=== PATIENT | male | born 1955 | race Caucasian/White ===

== ENCOUNTER 2017-01-09 13:56 | Inpatient (IN) | payer OTHER ==
--- NOTE | 2017-01-09 14:58 | PDOC ---
History of Present Illness - General Chief Complaint: Pain Stated Complaint: PAIN Time Seen by Provider: 01/09/17 14:47 - History of Present Illness Initial Comments: 01/09/17 15:13 The patient is a 61 year old male with a history of HTN and a cholecystectomy who presents for evaluation of epigastric and RUQ abdominal pain. The patient reports onset of poorly described epigastric and RUQ abdominal pain at 7am today that has remained persistent prompting his presentation to the ED today. He states that he has had the pain for years, but it has never been persistent like this in the past. He reports nausea, but denies any vomiting. He denies fevers, chills, SOB, chest pain, or changes with urination or bowel movements. He denies ETOH use and endorses occasional cigarette use. Past History - Past Medical History Allergies/Adverse Reactions: Allergies Allergy/AdvReac Type Severity Reaction Status Date / Time No Known Allergies Allergy Verified 01/09/17 14:05 Home Medications: Ambulatory Orders Amlodipine Besylate [Norvasc -] 10 mg PO DAILY 01/09/17 Aspirin [ASA -] 325 mg PO DAILY 01/09/17 Hydrochlorothiazide [Hctz -] 25 mg PO DAILY 01/09/17 Losartan Potassium [Cozaar -] 25 mg PO DAILY 01/09/17 COPD: No HTN: Yes Hypercholesterolemia: Yes - Surgical History Cholecystectomy: Yes - Suicide/Smoking/Psychosocial Hx Smoking History: Never smoked Information on smoking cessation initiated: No Hx Alcohol Use: No Drug/Substance Use Hx: No Review of Systems - Review of Systems Comments:: 01/09/17 15:18 Constitutional: No fevers, chills, fatigue, malaise HEENT: No Rhinorrhea, nasal congestion, Cardiovascular: No chest pain, syncope, palpitations, lightheadedness Respiratory: No Cough, SOB, Hemoptysis, Gastrointestinal: Abdominal pain, nausea, No Vomiting, Constipation, Diarrhea, Melena Genitourinary: No Dysuria, Frequency, Urgency, Hesitancy, Hematuria, Flank pain Musculoskeletal: No Myalgia, arthralgia Skin: No rashes, bruising, pallor Neurologic: No Headache, Dizziness, Numbness, Weakness, or Tingling Psychiatric: No Hallucinations. No SI or HI *Physical Exam - Vital Signs Last Vital Signs Temp Pulse Resp BP Pulse Ox 98.3 F 100 H 18 165/91 100 11/13/17 14:06 01/09/17 14:06 01/09/17 14:06 01/09/17 14:06 01/09/17 14:06 - Physical Exam Comments: 01/09/17 15:24 General Appearance: Nourished. No Apparent Distress HEENT: EOMI, JUN. No Pharyngeal Erythema, Tonsillar Exudate, Tonsillar Erythema Neck: No Cervical Lymphadenopathy Respiratory/Chest: Lungs Clear, Normal Breath Sounds. No Crackles, Rales, Rhonchi, Wheezing Cardiovascular: Regular Rhythm, Regular Rate. No Murmur, Gallops, Rubs Gastrointestinal/Abdominal: Normal Bowel Sounds, Soft. Epigastric tenderness to palpation. RUQ tenderness to palpation. No Guarding, Rebound, Musculoskeletal: No CVA Tenderness Extremity: Normal Capillary Refill Integumentary: Normal Color, Dry, Warm Neurologic: Fully Oriented, Alert, Normal Mood/Affect, Normal Response, ED Treatment Course - LABORATORY CBC & Chemistry Diagram: 01/09/17 15:05 01/09/17 15:05 Medical Decision Making - Medical Decision Making 01/09/17 15:26 The patient is a 61 year old male with a history of HTN and a cholecystectomy who presents for evaluation of epigastric and RUQ abdominal pain. Differential includes but is not limited to: Choledocholithiasis, Pancreatitis, gastritis, acs, infectious, metabolic derangement. Given the patient's physical exam of ruq tenderness to palpation, it is possible his symptoms are due to a choledocholithiasis. We will obtain a cbc, cmp, troponin, lipase, ua to evaluate for other etiologies including acs and pancreatitis. We will obtain an US to evaluate for any common bile duct dilation. We will treat in the meantime with zofran, pepcid, and iv fluids. We will continue to monitor and reassess. 01/09/17 18:30 cbc demonstrates an wbc elevation to 20. cmp demonstrates elevations in his t.bili and liver enzymes. RUQ US demonstrated dilation in the common bile duct to 2.4 cm concerning for choledocholithiasis vs. cholangitis. We will treat with zosyn and morphine for pain control. He will require admission for further management of his symptoms. We discussed the case with Dr. Mcbride who accepted the patient for admission. We discussed the plan with the patient who voiced understanding and is agreeable with the plan. 01/09/17 19:08 We discussed the case with Dr. Armstrong who has been made aware of the case and requests that we put in for an MRCP. *DC/Admit/Observation/Transfer Diagnosis at time of Disposition: Acute cholangitis, Choledocholithiasis - Discharge Dispostion Condition at time of disposition: Stable Admit: Yes - Referrals - Patient Instructions - Post Discharge Activity
[2017-01-09] MEDS ORDERED: ONDANSETRON 4 MG/2 ML VIAL IVPUSH ONE (15:00)
[2017-01-09] MEDS ORDERED: FAMOTIDINE 20 MG/50 ML IVPB 20 MG/50 ML MG IVPB ONE ×2 (15:00→15:20)
[2017-01-09] MEDS ORDERED: SODIUM CHLORIDE 1,000 ML IV STA (15:01)
[2017-01-09] MEDS ORDERED: ONDANSETRON 4 MG/2 ML VIAL ONE (15:11)
[2017-01-09 15:19] LABS: MCH 28.8 pg (25.7-33.7); MCHC 33.9 g/dl (32.0-35.9); MEAN CELL VOLUME 84.9 fl (80-96); MEAN PLT VOLUME 8.3 fl (7.5-11.1); PLATELET COUNT 277 K/MM3 (134-434); RDW 13.8 % (11.9-15.9); WHITE BLOOD COUNT 20.8 K/mm3 (4.0-10.0)
[2017-01-09 15:34] LABS: ALBUMIN 3.8 g/dl (3.4-5.0); ANION GAP 11 (8-16); BILIRUBIN,TOTAL 2.6 mg/dL (0.2-1.0); CO2 28 mmol/L (21-32); GLUCOSE,RANDOM 209 mg/dL (74-106); SGPT/ALT 89 U/L (12-78); TOT PROT 8.2 g/dl (6.4-8.2)
[2017-01-09 15:37] LABS: ALK PHOS 274 U/L (45-117); TROPONIN I < 0.02 ng/ml (0.00-0.05)
[2017-01-09 15:39] LABS: CPK 143 IU/L (39-308); SGOT/AST 108 U/L (15-37)
[2017-01-09 15:41] LABS: URINE APPEARANCE CLEAR; URINE BILIRUBIN NEGATIVE (NEGATIVE); URINE BLOOD NEGATIVE (NEGATIVE); URINE COLOR LTYELLOW; URINE GLUCOSE (UA) 1+ (NEGATIVE); URINE KETONE NEGATIVE (NEGATIVE); URINE NITRITE NEGATIVE (NEGATIVE); URINE PROTEIN NEGATIVE (NEGATIVE); URINE UROBILINOGEN NEGATIVE mg/dL (0.2-1.0)
[2017-01-09] MEDS ORDERED: morphine CARPU-JECT 4 MG/1 ML DISP.SYRIN IVPUSH ONE (16:14)
[2017-01-09] MEDS ORDERED: PIPERACILLIN/TAZOB 3.375 GM 50 ML IVPB ONE (16:15)
[2017-01-09] MEDS ORDERED: morphine SULFATE 4 MG/ML VIAL ONE (16:19)
[2017-01-09] MEDS ORDERED: PIPERACILLIN/TAZOB 3.375 GM 3.375 GM/50 ML BAG IVPB ONE (16:20)
--- NOTE | 2017-01-09 17:21 | EKG ---
Test Reason : Blood Pressure : / mmHG Vent. Rate : 099 BPM Atrial Rate : 099 BPM P-R Int : 196 ms QRS Dur : 102 ms QT Int : 370 ms P-R-T Axes : 058 -04 097 degrees QTc Int : 474 ms NORMAL SINUS RHYTHM WITH SINUS ARRHYTHMIA POSSIBLE LEFT ATRIAL ENLARGEMENT PROLONGED QT ABNORMAL ECG NO PREVIOUS ECGS AVAILABLE Confirmed by PATY RYDER MD ([id number]) on 01/09/2017 5:20:52 PM Referred By: Confirmed By:PATY RYDER MD
--- NOTE | 2017-01-09 17:54 | PDOC ---
Attending Attestation - Resident Resident Name: Elliot Schilling - ED Attending Attestation I have performed the following: I have examined & evaluated the patient, The case was reviewed & discussed with the resident, I agree w/resident's findings & plan, Exceptions are as noted - HPI HPI: 01/09/17 17:52 61 year old M c/ pmh HTN, cholecysteomy p/w RUQ pain, nausea and vomiting since yesterday. Denies diarrhea, dysuria, chest pain. - Physicial Exam PE: 01/09/17 17:54 ABD: soft, TTP RUQ and epigastric. no rebound, no guarding. - Medical Decision Making 01/09/17 17:54 Vital Signs Temp Pulse Resp BP Pulse Ox 98.3 F 100 H 18 165/91 100 01/09/17 14:06 01/09/17 14:06 01/09/17 14:06 01/09/17 14:06 01/09/17 14:06 CBC, BMP 01/09/17 15:05 01/09/17 15:05 CMP Sodium 137 mmol/L (136-145) 01/09/17 15:05 Potassium 3.8 mmol/L (3.5-5.1) 01/09/17 15:05 Chloride 98 mmol/L (98-107) 01/09/17 15:05 Carbon Dioxide 28 mmol/L (21-32) 01/09/17 15:05 Anion Gap 11 (8-16) 01/09/17 15:05 BUN 19 mg/dL (7-18) H 01/09/17 15:05 Creatinine 1.0 mg/dL (0.7-1.3) 01/09/17 15:05 Creat Clearance w eGFR > 60 (>60) 01/09/17 15:05 Random Glucose 209 mg/dL (74-106) H 01/09/17 15:05 Calcium 9.0 mg/dL (8.5-10.1) 01/09/17 15:05 Total Bilirubin 2.6 mg/dL (0.2-1.0) H 01/09/17 15:05 AST 108 U/L (15-37) H 01/09/17 15:05 ALT 89 U/L (12-78) H 01/09/17 15:05 Alkaline Phosphatase 274 U/L (45-117) H 01/09/17 15:05 Creatine Kinase 143 IU/L (39-308) 01/09/17 15:05 Troponin I < 0.02 ng/ml (0.00-0.05) 01/09/17 15:05 Total Protein 8.2 g/dl (6.4-8.2) 01/09/17 15:05 Albumin 3.8 g/dl (3.4-5.0) 01/09/17 15:05 Lipase 97 U/L (73-393) 01/09/17 15:05 Elevated WBC, elevated Bilibrubin and RUQ ultrasound with increased bile duct sizes concerning for cholangitis vs. choledocholithiasis. Empiric IV antibiotics, GI consultation, and admission to the hospital.
[2017-01-09 18:18] LABS: TOTAL CELLS COUNTED 100
[2017-01-09 18:20] LABS: PLATELET ESTIMATE ADEQUATE
[2017-01-09] MEDS ORDERED: ACETAMINOPHEN 1000 MG/100 ML VIAL (NON FORMULARY) IVPB ONE (18:29)
[2017-01-09] MEDS ORDERED: HYDROmorphone HCL CARPU-JECT 1 MG/1 ML DISP.SYRIN IVPUSH ONE (18:34)
[2017-01-09] MEDS ORDERED: HYDROmorphone HCL CARPU-JECT 1 MG/1 ML DISP.SYRIN ONE (18:57)
[2017-01-09] MEDS ORDERED: ACETAMINOPHEN INJECTION 100 ML IVPB ONE (18:57)
--- NOTE | 2017-01-09 20:09 | HP ---
Admitting History and Physical - Primary Care Physician PCP: Piotr Mcbride - Admission Chief Complaint: ruq pain History of Present Illness: 61 year old male with a history of HTN and a cholecystectomy who presents for evaluation of epigastric and RUQ abdominal pain. The patient reports onset of poorly described epigastric and RUQ abdominal pain at 7am today that has remained persistent prompting his presentation to the ED today. He states that he has had the pain for years, but it has never been persistent like this in the past. He reports nausea, but denies any vomiting. He denies fevers, chills , SOB, chest pain, or changes with urination or bowel movements. He denies ETOH use and endorses occasional cigarette use. - Past Medical History Cardiovascular: Yes: HTN - Smoking History Smoking history: Never smoked - Alcohol/Substance Use Hx Alcohol Use: No Home Medications - Allergies Allergies/Adverse Reactions: Allergies Allergy/AdvReac Type Severity Reaction Status Date / Time No Known Allergies Allergy Verified 01/09/17 14:05 - Home Medications Home Medications: Ambulatory Orders Amlodipine Besylate [Norvasc -] 10 mg PO DAILY 01/09/17 Aspirin [ASA -] 325 mg PO DAILY 01/09/17 Hydrochlorothiazide [Hctz -] 25 mg PO DAILY 01/09/17 Losartan Potassium [Cozaar -] 25 mg PO DAILY 01/09/17 Physical Examination Vital Signs: Vital Signs Temperature 98.3 F 01/09/17 14:06 Pulse Rate 98 H 01/09/17 19:30 Respiratory Rate 18 01/09/17 19:30 Blood Pressure 160/62 01/09/17 19:30 O2 Sat by Pulse Oximetry (%) 98 01/09/17 19:30 Constitutional: Yes: No Distress HENT: Yes: Atraumatic Neck: Yes: Supple Cardiovascular: Yes: Regular Rate and Rhythm Respiratory: Yes: CTA Bilaterally Gastrointestinal: Yes: Tenderness (ruq) Extremities: Yes: WNL Neurological: Yes: Alert, Oriented Labs: CBC, BMP 01/09/17 15:05 01/09/17 15:05 Problem List - Problems (1) Acute cholangitis Assessment/Plan: npo, ivf, iv abx prn pain meds gi and id consult Code(s): K83.0 - CHOLANGITIS (2) HTN (hypertension) Assessment/Plan: on meds stable Code(s): I10 - ESSENTIAL (PRIMARY) HYPERTENSION Qualifiers: Hypertension type: essential hypertension Qualified Code(s): I10 - Essential (primary) hypertension Assessment/Plan Laboratory Tests 01/09/17 01/09/17 01/09/17 14:58 15:05 15:05 WBC 20.8 H RBC 4.67 Hgb 13.4 Hct 39.7 MCV 84.9 MCH 28.8 MCHC 33.9 RDW 13.8 Plt Count 277 MPV 8.3 Total Counted 100 Neutrophils % No Result Required. Neutrophils % (Manual) 83.0 H Band Neutrophils % 11.0 Lymphocytes % No Result Required. Lymphocytes % (Manual) 2.0 L Monocytes % (Manual) 4 Other Cell Type Platelet Estimate Adequate Platelet Comment No Result Required. Sodium 137 Potassium 3.8 Chloride 98 Carbon Dioxide 28 Anion Gap 11 BUN 19 H Creatinine 1.0 Creat Clearance w eGFR > 60 Random Glucose 209 H Calcium 9.0 Total Bilirubin 2.6 H AST 108 H ALT 89 H Alkaline Phosphatase 274 H Creatine Kinase 143 Troponin I < 0.02 Total Protein 8.2 Albumin 3.8 Lipase Urine Color Ltyellow Urine Appearance Clear Urine pH 7.0 Ur Specific [place] 1.010 Urine Protein Negative Urine Glucose (UA) 1+ H Urine Ketones Negative Urine Blood Negative Urine Nitrite Negative Urine Bilirubin Negative Urine Urobilinogen Negative 01/09/17 15:05 WBC RBC Hgb Hct MCV MCH MCHC RDW Plt Count MPV Total Counted Neutrophils % Neutrophils % (Manual) Band Neutrophils % Lymphocytes % Lymphocytes % (Manual) Monocytes % (Manual) Other Cell Type Platelet Estimate Platelet Comment Sodium Potassium Chloride Carbon Dioxide Anion Gap BUN Creatinine Creat Clearance w eGFR Random Glucose Calcium Total Bilirubin AST ALT Alkaline Phosphatase Creatine Kinase Troponin I Total Protein Albumin Lipase 97 Urine Color Urine Appearance Urine pH Ur Specific [place] Urine Protein Urine Glucose (UA) Urine Ketones Urine Blood Urine Nitrite Urine Bilirubin Urine Urobilinogen Active Medications Generic Name Dose Route Start Last Admin Trade Name Freq PRN Reason Stop Dose Admin Amlodipine Besylate 10 mg 01/10/17 10:00 Norvasc - PO DAILY HELEN Aspirin 325 mg 01/10/17 10:00 Asa - PO DAILY HELEN Sodium Chloride 1,000 mls @ 75 mls/hr 01/09/17 20:15 Normal Saline - IV ASDIR HELEN Losartan Potassium 25 mg 01/10/17 10:00 Cozaar - PO DAILY HELEN Active Medications Generic Name Dose Route Start Last Admin Trade Name Miles PRN Reason Stop Dose Admin Amlodipine Besylate 10 mg 01/10/17 10:00 01/10/17 09:50 Norvasc - PO 10 mg DAILY HELEN Administration Sodium Chloride 1,000 mls @ 75 mls/hr 01/09/17 20:15 01/09/17 20:40 Normal Saline - IV 75 mls/hr ASDIR HELEN Administration Piperacillin Sod/Tazobactam 100 mls @ 200 mls/hr 01/10/17 03:00 01/10/17 09: 49 Sod 4.5 gm/ Dextrose IVPB 200 mls/hr Q8H-IV HELEN Administration Protocol Losartan Potassium 25 mg 01/10/17 10:00 01/10/17 09:50 Cozaar - PO 25 mg DAILY HELEN Administration
[2017-01-09] MEDS ORDERED: SODIUM CHLORIDE 1,000 ML IV SCH (20:15)
[2017-01-09 20:28] LABS: URINE LEUK ESTERASE Negative (NEGATIVE)
[2017-01-09 22:48] LABS: ALBUMIN 3.6 g/dl (3.4-5.0); ALK PHOS 275 U/L (45-117); ANION GAP 12 (8-16); CALCIUM 8.8 mg/dL (8.5-10.1); CO2 26 mmol/L (21-32); CREATININE 1.4 mg/dL (0.7-1.3); GLUCOSE,RANDOM 160 mg/dL (74-106); SGOT/AST 88 U/L (15-37); SGPT/ALT 103 U/L (12-78)
[2017-01-10 01:26] VITALS: BMI 43.0
[2017-01-10] MEDS ORDERED: PT OWN MED DRAWER 7, Y5N ONE ×2 (02:45→21:20)
[2017-01-10] MEDS: PIPERACILLIN/TAZOB 4.5 GM 4.5 GM in DEXTROSE 5%-WATER - 100 ML IVPB SCH ×2 (03:04→09:49)
[2017-01-10] MEDS ORDERED: ACETAMINOPHEN 1000 MG/100 ML VIAL (NON FORMULARY) IVPB ONE ×2 (06:39→08:30)
[2017-01-10 08:21] LABS: MCH 28.1 pg (25.7-33.7); MCHC 33.1 g/dl (32.0-35.9); MEAN PLT VOLUME 8.5 fl (7.5-11.1); PLATELET COUNT 249 K/MM3 (134-434); RDW 13.7 % (11.9-15.9)
[2017-01-10 08:31] LABS: WHITE BLOOD COUNT 38.1 K/mm3 (4.0-10.0)
[2017-01-10] MEDS ORDERED: LOSARTAN POTASSIUM 25 MG TABLET PO SCH (10:00)
[2017-01-10] MEDS ORDERED: ASPIRIN 325 MG TABLET PO SCH (10:00)
[2017-01-10] MEDS ORDERED: amLODIPine BESYLATE 10 MG TABLET (FP) PO SCH (10:00)
--- NOTE | 2017-01-10 10:53 | CON.GI ---
Consult Consult Specialty:: GI Reason for Consultation:: abnormal US/liver enzymes - History of Present Illness History of Present Illness: A 61yom with RUQ pain of 1 day duration. Acute onset, severe, associated with nausea only. No fever, chiils, jaundice, melena, hematochezia, hematemesis, dysphagia, odynophagia, GERD-like symptoms, weight loss. S/p cholecystectomy. Reports prior history of similar location pain for years, however less severe. US on admission revealed dilated CBD, no obvious CBD defects and pancreas not visualized. Choleastasis, transaminitis, leukocytosis with normal lipase on labs. Spiked 101 fever in AM. - History Source History Provided By: Patient, Medical Record Limitations to Obtaining History: No Limitations - Past Medical History Cardio/Vascular: Yes: HTN - Alcohol/Substance Use Hx Alcohol Use: No - Smoking History Smoking history: Smoker current status UNK Home Medications - Allergies Allergies/Adverse Reactions: Allergies Allergy/AdvReac Type Severity Reaction Status Date / Time No Known Allergies Allergy Verified 01/09/17 14:05 - Home Medications Home Medications: Ambulatory Orders Amlodipine Besylate [Norvasc -] 10 mg PO DAILY 01/09/17 Aspirin [ASA -] 325 mg PO DAILY 01/09/17 Hydrochlorothiazide [Hctz -] 25 mg PO DAILY 01/09/17 Losartan Potassium [Cozaar -] 25 mg PO DAILY 01/09/17 Family Disease History - Family Disease History Family History: Unremarkable Review of Systems Findings/Remarks: please refer to H&P and HPI Physical Exam-GI Vital Signs: Vital Signs Temperature 101.1 F H 01/10/17 05:59 Pulse Rate 114 H 01/10/17 05:59 Respiratory Rate 18 01/10/17 05:59 Blood Pressure 145/76 01/10/17 05:59 O2 Sat by Pulse Oximetry (%) 98 01/09/17 22:00 Constitutional: Yes: Well Nourished, No Distress, Calm Eyes: Yes: Conjunctiva Clear HENT: Yes: Atraumatic Neck: Yes: Supple Cardiovascular: Yes: Regular Rate and Rhythm Respiratory: Yes: Regular ...Auscultate: Yes: Normoactive Bowel Sounds ...Palpate: Yes: Soft, Tenderness, Tenderness, Epigastium. No: Firm/Rigid, Guarding, Mass, Tenderness, Rebound ...Percussion: No: Fluid Wave Neurological: Yes: Alert, Oriented Psychiatric: Yes: Alert, Oriented Labs: CBC, BMP 01/10/17 07:00 01/09/17 21:40 CBCD WBC 38.1 K/mm3 (4.0-10.0) H* D 01/10/17 07:00 RBC 4.62 M/mm3 (4.00-5.60) 01/10/17 07:00 Hgb 13.0 GM/dL (11.7-16.9) 01/10/17 07:00 Hct 39.3 % (35.4-49) 01/10/17 07:00 MCV 85.0 fl (80-96) 01/10/17 07:00 MCHC 33.1 g/dl (32.0-35.9) 01/10/17 07:00 RDW 13.7 % (11.9-15.9) 01/10/17 07:00 Plt Count 249 K/MM3 (134-434) 01/10/17 07:00 MPV 8.5 fl (7.5-11.1) 01/10/17 07:00 CMP Sodium 137 mmol/L (136-145) 01/09/17 21:40 Potassium 3.7 mmol/L (3.5-5.1) 01/09/17 21:40 Chloride 99 mmol/L (98-107) 01/09/17 21:40 Carbon Dioxide 26 mmol/L (21-32) 01/09/17 21:40 Anion Gap 12 (8-16) 01/09/17 21:40 BUN 19 mg/dL (7-18) H 01/09/17 21:40 Creatinine 1.4 mg/dL (0.7-1.3) H D 01/09/17 21:40 Creat Clearance w eGFR 51.52 (>60) 01/09/17 21:40 Calcium 8.8 mg/dL (8.5-10.1) 01/09/17 21:40 Total Bilirubin 4.0 mg/dL (0.2-1.0) H D 01/09/17 21:40 AST 88 U/L (15-37) H 01/09/17 21:40 ALT 103 U/L (12-78) H 01/09/17 21:40 Alkaline Phosphatase 275 U/L (45-117) H 01/09/17 21:40 Total Protein 8.0 g/dl (6.4-8.2) 01/09/17 21:40 Albumin 3.6 g/dl (3.4-5.0) 01/09/17 21:40 Vital Signs (72 hours) 01/09/17 01/09/17 01/09/17 14:06 19:30 22:00 Temperature 98.3 F 98.2 F Pulse Rate 100 H 100 H Pulse Rate [ 98 H Apical] Respiratory 18 18 18 Rate Blood Pressure 165/91 124/62 Blood Pressure 160/62 [Left Arm] O2 Sat by Pulse 100 98 98 Oximetry (%) 01/10/17 01/10/17 02:00 05:59 Temperature 98.2 F 101.1 F H Pulse Rate 109 H 114 H Pulse Rate [ Apical] Respiratory 18 18 Rate Blood Pressure 142/83 145/76 Blood Pressure [Left Arm] O2 Sat by Pulse Oximetry (%) Imaging - Results Ultrasound: Report Reviewed MRI: Pending Problem List - Problems (1) Dilated cbd, acquired Code(s): K83.8 - OTHER SPECIFIED DISEASES OF BILIARY TRACT (2) Acute cholangitis Code(s): K83.0 - CHOLANGITIS Assessment/Plan Acute cholangitis and likely choledocolithiasis however need to rule out pancreatic and/or CBD lesions. MRCP formal read is pending. Continue with Zosyn. Tylenol, morphine and antiemetics PRN. Continue IV hydration and NPO Biliary consult and ERCP today. Discussed with the patient and his nurse
--- NOTE | 2017-01-10 10:58 | CON.GI ---
Consult Consult Specialty:: GI Referred by:: Dr. Carlos Armstrong: Biliary consult for Dr. Dey Reason for Consultation:: Cholangitis - History of Present Illness Chief Complaint: "I had abdominal pain" History of Present Illness: 61M admitted through [facility] ER yesterday for evaluation of abdominal pain. The patient states being in his USOH up until 7AM yesterday morning when he was awoken by sharp, severe, constant and in the right upper quadrant pain. He describes similar episodes intermittently in the past, the last being 2 weeks ago however it resolved without intervention. He has no sought evaluation for these previous episodes and the current pain was remniscent of when he required cholecystectomy in 2004. In ER he was noted to have a marked leukocytosis with elevated transaminases, bili and ALP. WBC this morning is 38. Pain continues and he had 101.1 F reported this morning. There is no family history of colorectal cancer or other GI malignancy. He has never had a colonoscopy. To clarify his home meds, Mr. Peterson is not on ASA 325mg daily, he takes 81mg once daily. He also explains that he was supposed to have evaluation for suspected JORGE A. 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 Place of : [facility] History of Recent Travel: No Home Medications - Allergies Allergies/Adverse Reactions: Allergies Allergy/AdvReac Type Severity Reaction Status Date / Time No Known Allergies Allergy Verified 01/09/17 14:05 - Home Medications Home Medications: Ambulatory Orders Amlodipine Besylate [Norvasc -] 10 mg PO DAILY 01/09/17 Aspirin [ASA -] 325 mg PO DAILY 01/09/17 Hydrochlorothiazide [Hctz -] 25 mg PO DAILY 01/09/17 Losartan Potassium [Cozaar -] 25 mg PO DAILY 01/09/17 Family Disease History - Family Disease History Family Disease History: Other: Father ( 64: lung ca), Mother (alive: 84: HTN ), Sister (4, 3 alive, 1 age 58 from CVA) Other Family History: No children. No family history of colorectal cancer or other GI malignancy Review of Systems - Review of Systems Constitutional: reports: Chills, Fever. denies: Unintentional Wgt. Loss Cardiovascular: denies: Chest Pain, Palpitations, Shortness of Breath Respiratory: denies: Cough, SOB Gastrointestinal: reports: Abdominal Pain, Nausea. denies: Constipation, Diarrhea, Rectal Bleeding, Vomiting Physical Exam-GI Vital Signs: Vital Signs Temperature 101.1 F H 01/10/17 05:59 Pulse Rate 114 H 01/10/17 05:59 Respiratory Rate 18 01/10/17 05:59 Blood Pressure 145/76 01/10/17 05:59 O2 Sat by Pulse Oximetry (%) 98 01/09/17 22:00 Constitutional: Yes: Calm Eyes: Yes: Sclera Icterus (Mild) Cardiovascular: Yes: Tachycardia (? premature beats) Respiratory: Yes: Rhonchi (at bases bilaterally) Gastrointestinal Inspection: Yes: Scars (faint healed trochar scars) ...Auscultate: Yes: Normoactive Bowel Sounds ...Palpate: Yes: Guarding (Voluntary), Tenderness (Marked TTP RUQ). No: Hepatomegaly, Splenomegaly ...Percussion: No: Tympanitic Edema: No (No LE edema) Neurological: Yes: Alert, Oriented Labs: CBC, BMP 01/10/17 07:00 01/09/17 21:40 Imaging - Results Ultrasound: Report Reviewed (Dilated CHD and CBD 2.5cm) EKG: Report Reviewed (Sinus Tach w/ PAC's, possible LAE, T wave abnormality, consider lat ischemia (seen on ER EKG as well)) Assessment/Plan Suspected Ascending Cholangitis: I discussed my concern with Mr. Peterson and explained that cholangitis can be a life threatening infection. I explained that a retained CBD stone is the likely cause of his current problem and that for further evaluation / treatment , ERCP would be undertaken and will be performed by Dr. Kana Dey. I discussed potential risks of the procedure like but not limited to bleeding, perforation requiring surgery to repair, infection, sedation medication effects , pancreatitis (occurring 5-10% of the time) all of which could be potentially life threatening. He has agreed to the procedure and consent was wittnessed by his nurse Hannah: For now I have advised: Transfer to ICU setting for closer monitoring: D/W Dr. Sebastian Continue NPO Held ASA. Patient explained that he takes 81mg asa at home not 325mg Increasing IV hydration in setting of sepsis Repeat CMP was ordered for today as well as blood cultures, coags mg, phos CXR given physical exam findings Will need further follow-up of EKG findings with PMD. No anginal symptoms I left a message to discuss the above with Dr. Mcbride ([phone]) and the floor staff has been attempting to contact her as well
[2017-01-10 11:25] LABS: ALBUMIN 3.1 g/dl (3.4-5.0); ANION GAP 14 (8-16); CALCIUM 8.1 mg/dL (8.5-10.1); CO2 25 mmol/L (21-32); GLUCOSE,RANDOM 134 mg/dL (74-106)
[2017-01-10 11:28] LABS: ALK PHOS 239 U/L (45-117); BILIRUBIN,TOTAL 6.2 mg/dL (0.2-1.0); CREATININE 1.4 mg/dL (0.7-1.3); SGOT/AST 60 U/L (15-37); SGPT/ALT 84 U/L (12-78)
[2017-01-10 11:57] LABS: PLATELET ESTIMATE ADEQUATE; TOTAL CELLS COUNTED 100
[2017-01-10 12:06] LABS: INR 1.66 (0.82-1.09); PROTHROMBIN TIME (PATIENT) 18.8 SEC (9.98-11.88)
[2017-01-10 12:09] LABS: ACTIVATED PTT 31.2 SECONDS (26.9-34.4)
--- NOTE | 2017-01-10 12:37 | CON.CARD ---
Consult Consult Specialty:: Cardiology Referred by:: Dr. Mcbride Reason for Consultation:: Cardiac evaluation - History of Present Illness Chief Complaint: Right quadrant pain History of Present Illness: Patient is a 61 year old male with underlying history of hypertension, history of cholecystectomy in 2004 who presents with right quadrant abdominal pain. He has had intermittent episodes, but this time it was persistent. He also has a temperature of 101 and ECG reveals sinus tachycardia with ST segment abnormalities read as mild ischemia in lateral leads. He denies chest pain or palpitation, but complains of shortness of breath with exertion. He denies paroxysmal nocturnal dyspnea or orthopnea. He denies headache or lightheadedness. As noted he had fever. Cardiology consultation was called for further evaluation. Family history includes hypertrophic cardiomyopathy. 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 History of Recent Travel: No Home Medications - Allergies Allergies/Adverse Reactions: Allergies Allergy/AdvReac Type Severity Reaction Status Date / Time No Known Allergies Allergy Verified 01/09/17 14:05 - Home Medications Home Medications: Ambulatory Orders Amlodipine Besylate [Norvasc -] 10 mg PO DAILY 01/09/17 Aspirin [ASA -] 325 mg PO DAILY 01/09/17 Hydrochlorothiazide [Hctz -] 25 mg PO DAILY 01/09/17 Losartan Potassium [Cozaar -] 25 mg PO DAILY 01/09/17 Family Disease History - Family Disease History Family Disease History: Other: Father ( 64: lung ca), Mother (alive: 84: HTN ), Sister (4, 3 alive, 1 age 58 from CVA) Other Family History: No children. No family history of colorectal cancer or other GI malignancy Review of Systems - Review of Systems Constitutional: reports: Fever Cardiovascular: reports: Shortness of Breath. denies: Chest Pain, Palpitations Respiratory: reports: SOB, SOB on Exertion. denies: Cough, Hemoptysis, Orthopnea, PND Gastrointestinal: reports: Abdominal Pain. denies: Diarrhea, Dysphagia, Melena , Nausea, Rectal Bleeding, Vomiting Neurological: denies: Dizziness, Headache, Seizure, Syncope Vital Signs: Vital Signs Temperature 98.3 F 01/10/17 09:00 Pulse Rate 113 H 01/10/17 09:00 Respiratory Rate 18 01/10/17 09:00 Blood Pressure 150/88 01/10/17 09:00 O2 Sat by Pulse Oximetry (%) 98 01/09/17 22:00 Neck: Yes: Supple Respiratory: Yes: Diminished Gastrointestinal: Yes: Normal Bowel Sounds, Soft, Abdomen, Obese, Tenderness Cardiovascular: Yes: Regular Rate and Rhythm, Tachycardia JVD: No Carotid Bruit: No PMI: Non-Displaced Heart Sounds: Yes: S1, S2. No: Gallop Edema: No - Other Data Labs, Other Data: CBC, BMP 01/10/17 07:00 01/10/17 07:00 INR, PTT INR 1.66 (0.82-1.09) H 01/10/17 11:15 Troponin, BNP 01/09/17 15:05 Troponin I < 0.02 Sinus tachycardia with APC Problem List - Problems (1) HTN (hypertension) Code(s): I10 - ESSENTIAL (PRIMARY) HYPERTENSION Qualifiers: Hypertension type: essential hypertension Qualified Code(s): I10 - Essential (primary) hypertension (2) Sinus tachycardia Code(s): R00.0 - TACHYCARDIA, UNSPECIFIED (3) Acute cholangitis Code(s): K83.0 - CHOLANGITIS (4) Choledocholithiasis Code(s): K80.50 - CALCULUS OF BILE DUCT W/O CHOLANGITIS OR CHOLECYST W/O OBST (5) MON (dyspnea on exertion) Code(s): R06.09 - OTHER FORMS OF DYSPNEA Assessment/Plan 1. Cholangitis with elevated WBC, history of cholecystectomy 2. Hypertension 3. Exogenous obesity 4. Family history of hypertrophic cardiomyopathy 5. Dyspnea on exertion 6. Sinus tachycardia in response to cholangitis and sepsis PLAN: 1. Transfer to ICU as per GI service. Await ERCP (MRCP report pending) 2. Antibiotic coverage 3. Transthoracic echocardiography to assess LV/RV and valvular function and to rule out hypertrophic cardiomyopathy 4. Continue Losartan. To decide whether to continue Amlodipine pending echocardiography result 5. Further cardiac work up to be considered after current GI issue is resolved. Further plans to follow Fernandez Levy MD
[2017-01-10 12:46] LABS: MAGNESIUM 1.6 mg/dL (1.8-2.4); PHOSPHOROUS 2.4 mg/dL (2.5-4.9)
[2017-01-10] MEDS ORDERED: PHYTONADIONE 10 MG/1 ML AMP SQ STA (13:03)
--- NOTE | 2017-01-10 13:20 | EKG ---
Test Reason : Blood Pressure : / mmHG Vent. Rate : 114 BPM Atrial Rate : 114 BPM P-R Int : 170 ms QRS Dur : 110 ms QT Int : 360 ms P-R-T Axes : 054 -03 084 degrees QTc Int : 496 ms SINUS TACHYCARDIA WITH PREMATURE ATRIAL COMPLEXES POSSIBLE LEFT ATRIAL ENLARGEMENT T WAVE ABNORMALITY, CONSIDER LATERAL ISCHEMIA ABNORMAL ECG WHEN COMPARED WITH ECG OF 09-JAN-2017 15:18, PREMATURE ATRIAL COMPLEXES ARE NOW PRESENT REPEAT REPEAT EKG IF CLINICALLY INDICATED Confirmed by ISREAL LEBRON MD ([id number]) on 01/10/2017 1:20:01 PM Referred By: PADMINI GARZA DR Confirmed By:ISREAL LEBRON MD
[2017-01-10] MEDS ORDERED: PROPOFOL 20 ML ONE (13:54)
[2017-01-10] MEDS ORDERED: ROCURONIUM BROMIDE 50 MG/5 ML VIAL ONE (13:54)
[2017-01-10] MEDS ORDERED: SUCCINYLCHOLINE CHLORIDE 200 MG/10 ML VIAL ONE (13:55)
[2017-01-10] MEDS ORDERED: fentaNYL CITRATE 250 MCG/5 ML VIAL ONE (13:55)
--- NOTE | 2017-01-10 16:13 | CON.ID ---
Consult Consult Specialty:: infectiopus diseases Reason for Consultation:: abd pain,leukocytosis, - History of Present Illness Chief Complaint: abd pain History of Present Illness: 61 year old male with a history of HTN and a cholecystectomy who presents for evaluation of epigastric and RUQ abdominal pain. The patient reports onset of poorly described epigastric and RUQ abdominal pain at 7am today that has remained persistent prompting his presentation to the ED today. He states that he has had the pain for years, but it has never been persistent like this in the past. He reports nausea, but denies any vomiting. He denies fevers, chills , SOB, chest pain, or changes with urination or bowel movements. He denies ETOH use and endorses occasional cigarette use. patient after admission was worked up found ac cholecystitis patient seen by gi his wbc has jumped up to 38 - History Source History Provided By: Patient Limitations to Obtaining History: No Limitations - Past Medical History Cardio/Vascular: Yes: HTN Pulmonary: Yes: Sleep Apnea (Was supposed to have evaluation) Hepatobiliary: Yes: Cholelithiasis, Other (Cholangitis) - Past Surgical History Past Surgical History: Yes: Cholecystectomy (laparoscopic 2004) - Alcohol/Substance Use Hx Alcohol Use: No History of Substance Use: reports: None - Smoking History Smoking history: Current some day smoker - Social History Usual Living Arrangement: Alone ADL: Independent 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 History of 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 Travel: No Home Medications - Allergies Allergies/Adverse Reactions: Allergies Allergy/AdvReac Type Severity Reaction Status Date / Time No Known Allergies Allergy Verified 01/09/17 14:05 - Home Medications Home Medications: Ambulatory Orders Amlodipine Besylate [Norvasc -] 10 mg PO DAILY 01/09/17 Aspirin [ASA -] 325 mg PO DAILY 01/09/17 Hydrochlorothiazide [Hctz -] 25 mg PO DAILY 01/09/17 Losartan Potassium [Cozaar -] 25 mg PO DAILY 01/09/17 Family Disease History - Family Disease History Family Disease History: Other: Father ( 64: lung ca), Mother (alive: 84: HTN ), Sister (4, 3 alive, 1 age 58 from CVA) Other Family History: No children. No family history of colorectal cancer or other GI malignancy Review of Systems - Review of Systems Constitutional: reports: Fever Eyes: reports: No Symptoms HENT: reports: No Symptoms Neck: reports: No Symptoms Cardiovascular: reports: No Symptoms Respiratory: reports: No Symptoms Gastrointestinal: reports: Abdominal Pain, Nausea Genitourinary: reports: No Symptoms Musculoskeletal: reports: No Symptoms Integumentary: reports: No Symptoms Neurological: reports: No Symptoms Endocrine: reports: No Symptoms Hematology/Lymphatic: reports: No Symptoms Psychiatric: reports: No Symptoms Physical Exam Vital Signs: Vital Signs Temperature 98.3 F 01/10/17 09:00 Pulse Rate 113 H 01/10/17 09:00 Respiratory Rate 18 01/10/17 09:00 Blood Pressure 150/88 01/10/17 09:00 O2 Sat by Pulse Oximetry (%) 98 01/09/17 22:00 Constitutional: Yes: Mild Distress Cardiovascular: Yes: Regular Rate and Rhythm Respiratory: Yes: Regular, CTA Bilaterally Gastrointestinal: Yes: Hypoactive Bowel Sounds, Tenderness Musculoskeletal: Yes: WNL Extremities: Yes: WNL Neurological: Yes: Alert, Oriented Psychiatric: Yes: Alert, Oriented Labs: CBC, BMP 01/10/17 07:00 01/10/17 07:00 Imaging - Results Chest X-ray: Report Reviewed MRI: Report Reviewed Assessment/Plan Problem List - Problems (1) Acute cholangitis Code(s): K83.0 - CHOLANGITIS (2) HTN (hypertension) Code(s): I10 - ESSENTIAL (PRIMARY) HYPERTENSION Qualifiers: Hypertension type: essential hypertension Qualified Code(s): I10 - Essential (primary) hypertension (3) Choledocholithiasis Code(s): K80.50 - CALCULUS OF BILE DUCT W/O CHOLANGITIS OR CHOLECYST W/O OBST (4) MON (dyspnea on exertion) Code(s): R06.09 - OTHER FORMS OF DYSPNEA ercp was tried but failed plan to transfer to tertiary care plan continue abx close watch hydration rest as per primary team and icu
[2017-01-10] MEDS ORDERED: GLYCOPYRROLATE 0.2 MG/1 ML VIAL ONE ×4 (17:18)
--- NOTE | 2017-01-10 17:35 | PN ---
Progress Note (short form) - Note Progress Note: GI Procedure NOte: Please see ERCP report. I was unable to cannulate the common bile duct. Given the coagulopathy my intention was to do a balloon sphincteroplasty and insert a stent then return to do a sphincterotomy and stone extraction. Vitamin K was given IV during my procedure but FFP was not yet available. With FFP infusing Dr Martines attempted to access the biliary system by PTC but this also proved unsuccessful. I have discussed the case with Dr Armstrong who will arrange transfer to [facility].
[2017-01-10] MEDS ORDERED: POTASSIUM PHOSPHATE 15 MM in DEXTROSE 5%-WATER - 100 ML IVPB ONE (18:39)
[2017-01-10] MEDS ORDERED: MAGNESIUM SULF 50% (8.12 MEQ/2 ML-1 GM VIAL) IVPB ONE (18:43)
--- NOTE | 2017-01-10 18:57 | PN ---
Progress Note (short form) - Note Progress Note: This is a 61 y/o M with PMH HTN and hx of cholecystectomy in 2004 who was admitted on 01/09/17 for evaluation of abdominal pain. At 7AM yesterday morning , pt woke up with severe and constant abdominal pain in his RUQ. Pt had similar episodes in the past; the last episode being 2 weeks ago and resolving on its own. In ED, pt had leukocytosis with elevated transaminases, bili and ALP. This AM, pt had a white count of 38 and was febrile at ~101F. His abdominal pain was a/w with nausea, without emesis. Pt denied any fever, chills , SOB, chest pain, or changes with urinary or bowel movements. Pt most likely has dx acute cholangitis and likely choledocolithiasis. Transferred to ICU after attempted ERCP and PTC for continued management and urgent transfer to [facility]. #Acute cholangitis and likely choledocholithiasis -Pt NPO -Tx as sepsis pt, close monitoring -Watch vitals carefully -Continue Dr. Addy Schwartz on case -For pain, can tx with oxycodone -F/u stat CBC, H&H -F/u stat CMP -F/u stat lactate -F/u stat coags, PT -Pt for transfer to [facility], or [facility]- awaiting call back to provide hx #Hypophosphatemia, hypokalemia -Repleted with K phosph 15 mmol IVPB #Hypomagnesemia -Repleted with 1g IVPB #HTN- controlled -on amlodipine 10mg qd -on losartan 25mg qd #DVT Prophylaxis SCD's #F/E/N -NS 125 cc/hr -NPO -Monitor electrolytes Disposition For urgent transfer to [facility] or [facility] d/t pt's condition- awaiting call back Case discussed with senior and Dr. Armstrong Thank you Alexa Werner MD PGY-1 ICU
[2017-01-10] MEDS ORDERED: SODIUM CHLORIDE 1,000 ML IV SCH (19:17)
--- NOTE | 2017-01-10 19:47 | PN ---
Progress Note, Physician History of Present Illness: pt awake - Current Medication List Current Medications: Active Medications Amlodipine Besylate (Norvasc -) 10 mg PO DAILY HELEN Last Admin: 01/10/17 09:50 Dose: 10 mg Chlorhexidine Gluconate (Hibiclens For Decolonization -) 1 applic TP HS HELEN Piperacillin Sod/Tazobactam (Sod 4.5 gm/ Dextrose) 100 mls @ 200 mls/hr IVPB Q8H-IV HELEN PRN Reason: Protocol Last Admin: 01/10/17 09:49 Dose: 200 mls/hr Potassium Phosphate 15 mm/ (Dextrose) 105 mls @ 52.5 mls/hr IVPB ONCE ONE Stop: 01/10/17 20:38 Sodium Chloride (Normal Saline -) 1,000 mls @ 125 mls/hr IV ASDIR HELEN Losartan Potassium (Cozaar -) 25 mg PO DAILY [facility] Last Admin: 01/10/17 09:50 Dose: 25 mg Mupirocin (Bactroban Ointment (For Decolonization) -) 1 applic NS BID HELEN Stop: 01/15/17 21:59 - Objective Vital Signs: Vital Signs Temperature 98.0 F 01/10/17 18:37 Pulse Rate 113 H 01/10/17 18:45 Respiratory Rate 26 H 01/10/17 18:45 Blood Pressure 146/78 01/10/17 18:45 O2 Sat by Pulse Oximetry (%) 93 L 01/10/17 18:45 Constitutional: Yes: Calm HENT: Yes: Atraumatic Neck: Yes: Supple Cardiovascular: Yes: Regular Rate and Rhythm Respiratory: Yes: CTA Bilaterally Gastrointestinal: Yes: Tenderness (ruq) Extremities: Yes: WNL Neurological: Yes: Alert, Oriented Labs: CBC, BMP 01/10/17 07:00 01/10/17 07:00 INR, PTT INR 1.66 (0.82-1.09) H 01/10/17 11:15 Problem List - Problems (1) Acute cholangitis Assessment/Plan: npo, ivf, iv abx prn pain meds gi and id consult Code(s): K83.0 - CHOLANGITIS (2) HTN (hypertension) Assessment/Plan: on meds stable Code(s): I10 - ESSENTIAL (PRIMARY) HYPERTENSION Qualifiers: Hypertension type: essential hypertension Qualified Code(s): I10 - Essential (primary) hypertension (3) Choledocholithiasis Assessment/Plan: gi on case couldnt do ercp notes reviewed Code(s): K80.50 - CALCULUS OF BILE DUCT W/O CHOLANGITIS OR CHOLECYST W/O OBST (4) MON (dyspnea on exertion) Code(s): R06.09 - OTHER FORMS OF DYSPNEA Assessment/Plan for transfer to tertiary care by gi for further care cc time 35 min
[2017-01-10 20:15] LABS: MCH 28.9 pg (25.7-33.7); MCHC 33.9 g/dl (32.0-35.9); MEAN CELL VOLUME 85.3 fl (80-96); MEAN PLT VOLUME 8.2 fl (7.5-11.1); PLATELET COUNT 207 K/MM3 (134-434); RDW 13.8 % (11.9-15.9); WHITE BLOOD COUNT 25.5 K/mm3 (4.0-10.0)
--- NOTE | 2017-01-10 20:15 | CONSULT ---
Consult - text type - Consultation Consultation Note: Pulm/CCM Consult note Pt seen and examined in the ICU. Consult at request of Dr Damon CC: abd pain HPI: Briefly Mr Peterson is a 61 y/o man with hx of ETOH abuse (sober x 17 yrs per pt), HTN, sleep apnea (not on NIV) and remote hx in 2004 of cholecystectomy. Pt was in his USOH until yesterday morning when he developed RUQ pain with associated fever. He relates he often has abdominal pain but it usually resolves, now it is persistent and worse. He was seen by GI and pt was dx with cholangitis, confirmed by MRCP. His pain was treated, abx were started, and today decompression of the biliary tree was attempted by both ERCP and percutaneously by IR. Both interventions were unsuccessful. Received FFP and Vit K for procedures. GI has now reached out to tertiary care center/ [facility] for urgent transfer. Currently pt is awake, his pain is controlled,however he is toxic appearing: febrile, rigoring HR 120s and RR 30s. His wbc is rising despite appropriate abx and bilis/transaminitis continue to climb as well. Cr is 1.4 and stable. He has been accepted by Alexey, Dr Lao (SICU attending) is receiving physician. Of note during this admission pt was seen by cardiology for questionable ishemic changes on EKG, trop was negative, TTE was ordered. 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 Ambulatory Orders Amlodipine Besylate [Norvasc -] 10 mg PO DAILY 01/09/17 Aspirin [ASA -] 325 mg PO DAILY 01/09/17 Hydrochlorothiazide [Hctz -] 25 mg PO DAILY 01/09/17 Losartan Potassium [Cozaar -] 25 mg PO DAILY 01/09/17 Active Medications Amlodipine Besylate (Norvasc -) 10 mg PO DAILY HELEN Last Admin: 01/10/17 09:50 Dose: 10 mg Chlorhexidine Gluconate (Hibiclens For Decolonization -) 1 applic TP HS HELEN Piperacillin Sod/Tazobactam (Sod 4.5 gm/ Dextrose) 100 mls @ 200 mls/hr IVPB Q8H-IV HELEN PRN Reason: Protocol Last Admin: 01/10/17 09:49 Dose: 200 mls/hr Potassium Phosphate 15 mm/ (Dextrose) 105 mls @ 52.5 mls/hr IVPB ONCE ONE Stop: 01/10/17 20:38 Last Admin: 01/10/17 20:14 Dose: 52.5 mls/hr Sodium Chloride (Normal Saline -) 1,000 mls @ 125 mls/hr IV ASDIR HELEN Last Admin: 01/10/17 20:14 Dose: 125 mls/hr Losartan Potassium (Cozaar -) 25 mg PO DAILY HELEN Last Admin: 01/10/17 09:50 Dose: 25 mg Mupirocin (Bactroban Ointment (For Decolonization) -) 1 applic NS BID HELEN Stop: 01/15/17 21:59 Vital Signs Temp 98.0 F 01/10/17 18:37 Pulse 113 H 01/10/17 18:45 Resp 26 H 01/10/17 18:45 BP 146/78 01/10/17 18:45 Pulse Ox 93 L 01/10/17 18:45 Intake & Output 01/09/17 01/10/17 01/10/17 23:59 11:59 23:59 Intake Total 675 800 Balance 675 800 Weight 128.423 kg Intake: IV 575 800 Normal Saline - 1,000 ml 575 @ 75 mls/hr IV ASDIR HELEN Rx#:[id number] IVPB 100 Other: Voiding Method Toilet Toilet # Unmeasured Voids Void 1 Height 5 ft 8 in Body Mass Index (BMI) 43.0 Weight Measurement Method Built in [facility] Weight Measurement Method Est/Stated by Patient CBCD WBC 25.5 K/mm3 (4.0-10.0) H D 01/10/17 19:30 RBC 3.94 M/mm3 (4.00-5.60) L 01/10/17 19:30 Hgb 11.4 GM/dL (11.7-16.9) L D 01/10/17 19:30 Hct 33.6 % (35.4-49) L 01/10/17 19:30 MCV 85.3 fl (80-96) 01/10/17 19:30 MCHC 33.9 g/dl (32.0-35.9) 01/10/17 19:30 RDW 13.8 % (11.9-15.9) 01/10/17 19:30 Plt Count 207 K/MM3 (134-434) 01/10/17 19:30 MPV 8.2 fl (7.5-11.1) 01/10/17 19:30 CMP Sodium 138 mmol/L (136-145) 01/10/17 07:00 Potassium 3.2 mmol/L (3.5-5.1) L 01/10/17 07:00 Chloride 99 mmol/L (98-107) 01/10/17 07:00 Carbon Dioxide 25 mmol/L (21-32) 01/10/17 07:00 Anion Gap 14 (8-16) 01/10/17 07:00 BUN 20 mg/dL (7-18) H 01/10/17 07:00 Creatinine 1.4 mg/dL (0.7-1.3) H 01/10/17 07:00 Creat Clearance w eGFR 51.52 (>60) 01/10/17 07:00 Calcium 8.1 mg/dL (8.5-10.1) L 01/10/17 07:00 Total Bilirubin 6.2 mg/dL (0.2-1.0) H D 01/10/17 07:00 AST 60 U/L (15-37) H D 01/10/17 07:00 ALT 84 U/L (12-78) H 01/10/17 07:00 Alkaline Phosphatase 239 U/L (45-117) H 01/10/17 07:00 Total Protein 7.0 g/dl (6.4-8.2) 01/10/17 07:00 Albumin 3.1 g/dl (3.4-5.0) L 01/10/17 07:00 Hepatic Panel Total Bilirubin 2-->4--> 6.2 mg/dL (0.2-1.0) H D 01/10/17 07:00 AST 60 U/L (15-37) H D 01/10/17 07:00 ALT 84 U/L (12-78) H 01/10/17 07:00 Alkaline Phosphatase 239 U/L (45-117) H 01/10/17 07:00 Albumin 3.1 g/dl (3.4-5.0) L 01/10/17 07:00 Blood cxl 01/09: NGTD MRCP: report reviewed CXR today pending. EKG: sinus tach with occ PAC, flattened t-wave in V5/V6 PE: Gen: toxic appearing man, febrile, tachypneic HEENT: mildly icteric sclera PULM: scattered crackles, moderate accessory muscle use ABD: + burns, RUQ pain with palpation, mildly distended/tympanic EXT: trace edema A/ 61 y/o man with hx of HTN and cholecystectomy now with ascending cholangitis , failed ERCP and perc drainage P/ -urgent transfer to tertiary care at [facility] -cont broad spectrum abx to cover biliary sepsis on pip/angie -f/u cxls as suspect is becoming bacteremic given recurrent fever and toxic appearance -getting stat cxr now, as pt increasing dyspenic with increasing fio2 requirements -f/u pending TTE -DVT: Venodynes Dispo---> [facility] for urgent GI eval, reattempt at ERCP Luciano Lombardo ACNP
[2017-01-10 20:27] LABS: INR 1.65 (0.82-1.09); PROTHROMBIN TIME (PATIENT) 18.6 SEC (9.98-11.88)
[2017-01-10 20:34] VITALS: BP 137/68; PULSE 121
[2017-01-10 20:36] VITALS: TEMP 100.9
[2017-01-10] MEDS ORDERED: ACETAMINOPHEN 1000 MG/100 ML VIAL (NON FORMULARY) IVPB PRN (20:38)
[2017-01-10 20:49] LABS: TOTAL CELLS COUNTED 100
[2017-01-10 20:50] LABS: PLATELET COMMENTS NO CLUMPING NOTED; PLATELET ESTIMATE ADEQUATE; REACTIVE LYMPHOCYTES 1 % (0-80)
[2017-01-10 21:01] LABS: ALBUMIN 2.7 g/dl (3.4-5.0); ANION GAP 9 (8-16); CALCIUM 7.7 mg/dL (8.5-10.1); CO2 29 mmol/L (21-32); GLUCOSE,RANDOM 134 mg/dL (74-106)
[2017-01-10 21:05] LABS: ALK PHOS 169 U/L (45-117); BILIRUBIN,TOTAL 5.8 mg/dL (0.2-1.0); CREATININE 2.1 mg/dL (0.7-1.3); SGOT/AST 46 U/L (15-37); SGPT/ALT 64 U/L (12-78); TOT PROT 5.9 g/dl (6.4-8.2)
[2017-01-10] MEDS ORDERED: KCL 10 MEQ IVPB 10 MEQ/100 ML INFUS.BAG IVPB SCH (21:45)
[2017-01-10] MEDS ORDERED: CHLORHEXIDINE GLUCONATE 4% CLEANSER FOR DECOLONIZATION TP SCH (22:00)
[2017-01-10] MEDS ORDERED: MUPIROCIN 2% TOPICAL OINTMENT FOR DECOLONIZATION NS SCH (22:00)
--- NOTE | 2017-01-11 18:03 | DS ---
Physical Examination Vital Signs: Vital Signs Temperature 100.9 F H 01/10/17 20:00 Pulse Rate 121 H 01/10/17 20:00 Respiratory Rate 32 H 01/10/17 20:47 Blood Pressure 137/68 01/10/17 20:00 O2 Sat by Pulse Oximetry (%) 93 L 01/10/17 20:47 Labs: CBC, BMP 01/10/17 19:30 01/10/17 19:30 Discharge Summary Reason For Visit: COMMON BILE DUCT; ACUTE CHOLANGITIS Condition: Stable - Instructions Referrals: STAFF,NOT ON [Primary Care Provider] - Disposition: TRANSFER ACUTE CARE/OTHER HOSP - Home Medications Comprehensive Discharge Medication List: Ambulatory Orders Amlodipine Besylate [Norvasc -] 10 mg PO DAILY 01/09/17 Aspirin [ASA -] 325 mg PO DAILY 01/09/17 Hydrochlorothiazide [Hctz -] 25 mg PO DAILY 01/09/17 Losartan Potassium [Cozaar -] 25 mg PO DAILY 01/09/17 transfer to tertiary care
== END 2017-01-10 22:15 | disposition short-term general hospital (02) | DRG 710 ==
LOC: JER 13:56 → JERBED 18:00 → J6S 21:08 → JICU 01-10 14:15
PROVIDERS: ADMIT Internal Medicine; ATTEND Internal Medicine
PROC: BF13YZZ Fluoroscopy of Gallbladder and Bile Ducts using Other Contrast (ICD-10-PCS; 2017-01-10)
PROC: 30233K1 Transfusion of Nonautologous Frozen Plasma into Peripheral Vein, Percutaneous Approach (ICD-10-PCS; 2017-01-10)
PROC: 30233L1 Transfusion of Nonautologous Fresh Plasma into Peripheral Vein, Percutaneous Approach (ICD-10-PCS; 2017-01-10)
PROC: 0FJB8ZZ Inspection of Hepatobiliary Duct, Via Natural or Artificial Opening Endoscopic (ICD-10-PCS; principal; 2017-01-10 13:00)
DX: A41.9 Sepsis, unspecified organism (principal); K83.0 Cholangitis; D68.8 Other specified coagulation defects; E83.42 Hypomagnesemia; R17 Unspecified jaundice; K83.8 Other specified diseases of biliary tract; I10 Essential (primary) hypertension; E83.39 Other disorders of phosphorus metabolism; E78.00 Pure hypercholesterolemia, unspecified; E87.6 Hypokalemia; G47.39 Other sleep apnea; R00.0 Tachycardia, unspecified; E66.8 Other obesity; Z68.41 Body mass index [BMI] 40.0-44.9, adult; K80.50 Calculus of bile duct without cholangitis or cholecystitis without obstruction; F17.210 Nicotine dependence, cigarettes, uncomplicated; R50.9 Fever, unspecified; R06.09 Other forms of dyspnea
CPT/HCPCS: 36415; 36430; 47533-TC; 47534; 71010-TC; 74181-TC; 76000-TC; 76705-TC; 76998-TC; 80053; 81003; 82550; 83605; 83690; 83735; 84100; 84484; 85025; 85610; 85730; 86850; 86900; 86901; 87040; 93005; 93010; 93306-TC; 99285-25; C1769; P9017